=== PATIENT | female | born 1965 | race Caucasian/White ===

== ENCOUNTER 2016-10-06 13:10 | Emergency (ER) | payer BC ==
[2016-10-06 13:16] VITALS: BP 127/73; PULSE 91; TEMP 99.1; BMI 26.2
[2016-10-06] MEDS ORDERED: LORATADINE 10 MG TABLET PO ONE (14:08)
[2016-10-06] MEDS ORDERED: FAMOTIDINE 20 MG TABLET PO ONE (14:08)
[2016-10-06] MEDS ORDERED: FAMOTIDINE 20 MG TABLET ONE (14:12)
--- NOTE | 2016-10-06 14:18 | PDOC ---
History of Present Illness - General Chief Complaint: Allergic Reaction Stated Complaint: RASH,ITCHING Time Seen by Provider: 10/06/16 13:23 History Source: Patient Exam Limitations: No Limitations - History of Present Illness Initial Comments: 10/06/16 14:12 CHIEF COMPLAINT: "I have a rash." HISTORY OF PRESENT ILLNESS: This is a 51-year-old woman with a history of episodic urticaria in the past. She has not had urticaria for many years. She now presents complaining of urticaria-like rash over the last 2 days. It started yesterday morning. She noted some hives, evanescent, migratory, with itching of her skin on her palms. She also noted some eyelid swelling. She denies any difficulty breathing, any lip swelling, tongue swelling, throat swelling, difficulties speaking, or wheezing. REVIEW OF SYSTEMS: GENERAL/CONSTITUTIONAL: No fever or chills. No weakness. No weight change. HEAD, EYES, EARS, NOSE AND THROAT: No change in vision. No ear pain or discharge. No sore throat. CARDIOVASCULAR: No chest pain or shortness of breath. RESPIRATORY: No cough, wheezing, or hemoptysis. GASTROINTESTINAL: No nausea, vomiting, diarrhea or constipation. No rectal bleeding. GENITOURINARY: No dysuria, frequency, or change in urination. MUSCULOSKELETAL: No joint or muscle swelling or pain. No neck or back pain. SKIN AND BREASTS: Positive rash. Easy bruising. NEUROLOGIC: No headache, vertigo, loss of consciousness, or loss of sensation. PSYCHIATRIC: No depression or anxiety. ENDOCRINE: No increased thirst. No abnormal weight change. HEMATOLOGIC/LYMPHATIC: No anemia, easy bleeding, or history of blood clots. ALLERGIC/IMMUNOLOGIC: Positive hives. No latex allergy. 10/06/16 14:17 There is no exposure to any new medications or foods. The patient has been seen by an operator automated process in the past for prior urticaria. The urticaria was idiopathic. There was initially a question of shrimp ALLERGY, but she has not been ALLERGIC to shrimp for many years. Past History - Past Medical History Allergies/Adverse Reactions: Allergies Allergy/AdvReac Type Severity Reaction Status Date / Time Penicillins Allergy Mild Verified 10/06/16 13:13 Sulfa (Sulfonamide Allergy Mild Verified 10/06/16 13:13 Antibiotics) Home Medications: Ambulatory Orders Lipitor 10 mg PO DAILY 05/05/11 Cetirizine HCl 10 mg PO DAILY PRN #30 tablet 10/06/16 Famotidine [Pepcid] 20 mg PO BID PRN #60 tablet 10/06/16 Pramoxine HCl [Sarna] 222 ml TP TID PRN #1 lotion 10/06/16 Ramipril 5 mg PO DAILY 10/06/16 HTN: Yes Hypercholesterolemia: Yes Other medical history: urticaria - Immunization History Td Vaccination: No TDAP Vaccination: No Immunization Up to Date: Yes - Psycho/Social/Smoking Cessation Hx Anxiety: No Suicidal Ideation: No Smoking Status: No Smoking History: Never smoked Years of Tobacco Use: 0 Number of Cigarettes Smoked Daily: 0 Cigars Per Day: 0 Information on smoking cessation initiated: No Hx Alcohol Use: No Drug/Substance Use Hx: No Substance Use Type: None *Physical Exam - Vital Signs Last Vital Signs Temp Pulse Resp BP Pulse Ox 99.1 F 91 H 18 127/73 98 10/06/16 13:11 10/06/16 13:11 10/06/16 13:11 10/06/16 13:11 10/06/16 13:11 - Physical Exam Comments: 10/06/16 14:16 GENERAL: The patient is awake, alert, and fully oriented, in no acute distress. HEAD: Normal with no signs of trauma. EYES: Pupils equal, round and reactive to light, extraocular movements intact, sclera anicteric, conjunctiva clear. Lids with erythema and mild swelling. ENT: Ears normal, nares patent, oropharynx clear without exudates, no edema. Moist mucous membranes. NECK: Normal range of motion, supple without lymphadenopathy, JVD, or masses. LUNGS: Breath sounds equal, clear to auscultation bilaterally. No wheezes, and no crackles. HEART: Regular rate and rhythm, normal S1 and S2 without murmur, rub or gallop. ABDOMEN: Soft, nontender, normoactive bowel sounds. No guarding, no rebound. No masses. EXTREMITIES: Normal range of motion, no edema. No clubbing or cyanosis. No cords, erythema, or tenderness. NEUROLOGICAL: Cranial nerves II through XII grossly intact. Normal speech, normal gait. PSYCH: Normal mood, normal affect. SKIN: There are hives scattered over the face, trunk, and extremities. There is no mucous membrane involvement. Medical Decision Making - Medical Decision Making 10/06/16 14:18 51-year-old woman with a history of episodic urticaria in the past. She presents now with 2 days of urticaria without a clear precipitant. She took Benadryl 20 mg liquid every 4 hours with temporary relief, but the rash continues to come back. There is no airway involvement. Impression: Urticaria without airway compromise Plan: Patient will be started on long-acting antihistamines with cetirizine, also an H2 brooks Pepcid, and Sarna lotion as needed for itching. She will go back to her operator automated process for follow-up in a few days if the symptoms have not resolved. *DC/Admit/Observation/Transfer Diagnosis at time of Disposition: Urticaria - Discharge Dispostion Disposition: HOME Condition at time of disposition: Stable Admit: No - Prescriptions Prescriptions: Cetirizine HCl 10 mg PO DAILY PRN #30 tablet PRN Reason: hives Famotidine [Pepcid] 20 mg PO BID PRN #60 tablet PRN Reason: hives Pramoxine HCl [Sarna] 222 ml TP TID PRN #1 lotion PRN Reason: itching - Patient Instructions Printed Discharge Instructions: DI for Hives Additional Instructions: Today you were evaluated for hives. It is unclear what is causing this ALLERGIC reaction. Watch what foods you are eating, and avoid any new medications or [id number] herbal products. Take cetirizine 10 mg every morning. This is a long-acting antihistamine. Take Pepcid 20 mg twice a day. This also has an antihistamine like effect to help resolve the rash. Use Sarna lotion to your skin 3 times a day as needed for itching. Follow-up with your operator automated process if the symptoms are not resolving in the next few days. Return to the emergency department for any severe or progressive symptoms such as difficulty speaking or swallowing, or swelling in the throat or difficulty breathing.
== END 2016-10-06 14:34 | disposition home or self-care (01) ==
LOC: FER 13:10
DX: L50.9 Urticaria, unspecified (principal); I10 Essential (primary) hypertension; E78.00 Pure hypercholesterolemia, unspecified
CPT/HCPCS: 99282-25

== ENCOUNTER 2022-05-13 07:47 | Emergency (ER) | payer OTHER ==
[2022-05-13 07:58] VITALS: BP 155/101; PULSE 106; RESP 18; TEMP 98; BMI 27.6
== END 2022-05-13 10:14 | disposition home or self-care (01) ==
LOC: FER 07:47
PROC: 2W3CX1Z Immobilization of Right Lower Arm using Splint (ICD-10-PCS; principal; 2022-05-13)
DX: S52.614A Nondisplaced fracture of right ulna styloid process, initial encounter for closed fracture (principal); W19.XXXA Unspecified fall, initial encounter
CPT/HCPCS: 73110-TC-RT-FY; 99283-25